=== PATIENT | male | born 1980 | race Caucasian/White ===

== ENCOUNTER → 2017-03-31 | Outpatient (CLI) | payer OTHER ==
--- NOTE | 2017-03-31 15:14 | CR ---
EXAMINATION: Left knee HISTORY: Arthropathy COMPARISON: None TECHNIQUE: 3 views FINDINGS/IMPRESSION: There is no acute osseous abnormality, dislocation, or fracture identified. Bon e mineralization and joint spaces appear normal. No soft tissue swelling or joint effusion.
== END ==
LOC: MW.CHFP 12:25
PROVIDERS: ATTEND Student in an Organized Health Care Education/Training Program
DX: M12.562 Traumatic arthropathy, left knee (principal)
CPT/HCPCS: 73562-26-LT; 73562-LT

== ENCOUNTER → 2017-04-04 | Outpatient (CLI) | payer OTHER ==
--- NOTE | 2017-04-05 13:41 | MR ---
EXAM DATE: 04/04/17 PATIENT'S AGE: 36 Patient: DAREK LOPEZ Facility: [place], [place] Site . Site : [id number] Study: MRI Knee Left [id number]/[id number]/2017 7:35:42 PM Ordering Physician: Luis Herzog Final Report: Indication: Pain after injury. Comparison: None provided. Technique: Axial PD fat-sat, sagittal T1, PD and PD fat sat and coronal PD and PD fat-sat sequences. Findings: Medial compartment: Meniscus: Irregular undersurface and free margin tearing through the posterior body into the outer posterior horn medial meniscus with slight extrusion of an irregular flap over the posteromedial margin of the tibial plateau. Moderate volume loss through the posterior horn with tearing through the undersurface, substance and free margin. Relatively well-defined superior and anterior displaced flap of the junction of posterior horn and root at the posterior medial margin of the intercondylar notch (image 25 series 8). Articular cartilage: Uniform thickness and signal. Medial collateral ligament: Intact. Cruciate ligaments: ACL: Somewhat wispy but intact diminutive ACL. PCL: Intact. Normal caliber and signal. Lateral compartment: Meniscus: Intact. Articular cartilage: Uniform. Lateral collateral complex: Intact. Patellofemoral compartment: Uniform thickness and signal of the articular cartilage. Extensor mechanism: Distal quadriceps tendon and patellar tendon are intact with anatomic patellar alignment and normal trochlear morphology. Capsule and retinacula appear unremarkable. Bones and soft tissues: Moderately large joint effusion. No bone lesion or fracture. Impression: 1. Extensive tearing medial meniscus with extrusion and displaced flap as discussed. 2. Congenital or remote posttraumatic diminutive ACL. 3. Large joint effusion. Dictated by Stiven Lyle MD @ Apr 05 2017 12:00PM (Electronic Signature) Report Signed by Proxy. AYANA
== END ==
LOC: MW.MRI 18:20
PROVIDERS: ATTEND Student in an Organized Health Care Education/Training Program
DX: M12.562 Traumatic arthropathy, left knee (principal); S83.242A Other tear of medial meniscus, current injury, left knee, initial encounter; M25.462 Effusion, left knee
CPT/HCPCS: 73721-26-LT; 73721-LT

== ENCOUNTER 2017-04-26 07:14 | Day surgery (SDC) | payer OTHER ==
[~2017-04-26 07:14] MED LIST: Lactated Ringers 1,000 ML IV SCH; Lidocaine 1% 20 ML MDV ONE
[2017-04-26] MEDS ORDERED: fentaNYL 250 MCG/5 ML SDV ONE (07:31)
[2017-04-26] MEDS ORDERED: Ondansetron 4 MG/2 ML SDV ONE (07:31)
[2017-04-26] MEDS ORDERED: Lidocaine 2% 5 ML SDV ONE (07:31)
[2017-04-26] MEDS ORDERED: Midazolam 1 MG/ML 2 ML SDV ONE (07:31)
[2017-04-26] MEDS ORDERED: Propofol 200 MG/20 ML SDV ONE ×2 (07:31→09:17)
[2017-04-26] MEDS ORDERED: ceFAZolin 1 GM Vial ONE (07:33)
[2017-04-26] MEDS ORDERED: Sodium Chloride 0.9% 20 ML ONE (07:33)
[2017-04-26] MEDS ORDERED: ceFAZolin 2 GM in Premix Bag 1 BAG IV SCH (08:00)
--- NOTE | 2017-04-26 08:22 | PCM.PREANE ---
Preanesthetic Assessment - Procedure Proposed Procedure: Left knee arthroscopy and care PRN - Anesthesia/Transfusion/Family Hx Anesthesia History: No Prior Anesthesia Family History of Anesthesia Reaction: No Transfusion History: No Prior Transfusion(s) Intubation History: Unknown - Review of Systems General: No Symptoms Pulmonary: No Symptoms Cardiovascular: No Symptoms Gastrointestinal: No symptoms Neurological: Other (left knee pain) Other: Reports: None - Physical Assessment NPO Status Date: 04/25/17 NPO Status Time: 00:00 O2 Sat by Pulse Oximetry: 95 Respiratory Rate: 16 Vital Signs: Last Vital Signs Temp 98.2 F 04/26/17 07:47 Pulse 74 04/26/17 07:47 Resp 16 04/26/17 07:47 BP 132/78 04/26/17 07:47 Pulse Ox 95 04/26/17 07:47 Height: 6 ft 2 in Weight: 255 lb ASA Class: 2 Mental Status: Alert & Oriented x3 Airway Class: Mallampati = 1 Dentition: Reports: Normal Dentition Thyro-Mental Finger Breadths: 3 Mouth Opening Finger Breadths: 3 ROM/Head Extension: Full (full neck) Lungs: Clear to auscultation, Normal respiratory effort Cardiovascular: Regular Rate, Regular Rhythm, No Murmurs - Allergies Allergies/Adverse Reactions: Allergies Allergy/AdvReac Type Severity Reaction Status Date / Time No Known Allergies Allergy Verified 04/24/17 11:18 - Blood Blood Available: No Product(s) Available: None - Anesthesia Plan Pre-Op Medication Ordered: None - Acknowledgements Anesthesia Type Planned: General Anesthesia (LMA) Pt an Appropriate Candidate for the Planned Anesthesia: Yes Alternatives and Risks of Anesthesia Discussed w Pt/Guardian: Yes Pt/Guardian Understands and Agrees with Anesthesia Plan: Yes PreAnesthesia Questionnaire HEENT History: Reports: None Cardiovascular History: Reports: None Respiratory History: Reports: None Gastrointestinal History: Reports: None Genitourinary History: Reports: None Musculoskeletal History: Reports: Back Pain, Chronic Other Musculoskeletal History: related to work Neurological History: Reports: None Psychiatric History: Reports: None Endocrine/Metabolic History: Reports: Obesity/BMI 30+ Hematologic History: Reports: None Immunologic History: Reports: None Oncologic (Cancer) History: Reports: None Dermatologic History: Reports: None - Past Surgical History Head Surgeries/Procedures: Reports: None Male Surgical History: Reports: None - SUBSTANCE USE Smoking Status *Q: Former Smoker Recreational Drug Use History: No - HOME MEDS Home Medications: Home Meds . [No Known Home Meds] 04/24/17 [History] - CURRENT (IN HOUSE) MEDS Current Meds: Current Medications Hydrocodone Bitart/Acetaminophen ([place] 325-5 Mg) 1 - 2 tab PO Q4H PRN PRN Reason: Pain Lactated Ringer's (Ringers, Lactated) 1,000 mls @ 100 mls/hr IV ASDIRECTED CLIFFORD Last Admin: 04/26/17 07:40 Dose: 100 mls/hr Cefazolin Sodium/Dextrose 2 gm (/ Premix) 50 mls @ 100 mls/hr IV ONCALL CLIFFORD Discontinued Medications Cefazolin Sodium (Ancef) Confirm Administered Dose 2 gm .ROUTE .STK-MED ONE Stop: 04/26/17 07:34 Fentanyl (Sublimaze) Confirm Administered Dose 250 mcg .ROUTE .STK-MED ONE Stop: 04/26/17 07:32 Sodium Chloride (Normal Saline) Confirm Administered Dose 20 mls @ as directed .ROUTE .STK-MED ONE Stop: 04/26/17 07:34 Lidocaine (Xylocaine-Mpf 2%) Confirm Administered Dose 5 ml .ROUTE .STK-MED ONE Stop: 04/26/17 07:32 Lidocaine HCl (Xylocaine 1%) Confirm Administered Dose 20 ml .ROUTE .STK-MED ONE Stop: 04/25/17 14:58 Midazolam HCl (Versed 1 Mg/Ml) Confirm Administered Dose 2 mg .ROUTE .STK-MED ONE Stop: 04/26/17 07:32 Ondansetron HCl (Zofran) Confirm Administered Dose 4 mg .ROUTE .STK-MED ONE Stop: 04/26/17 07:32 Propofol (Diprivan 20 Ml) Confirm Administered Dose 200 mg .ROUTE .STK-MED ONE Stop: 04/26/17 07:32
[2017-04-26] MEDS ORDERED: Acetaminophen/HYDROcodone 325-5 MG Tab PO PRN (09:00)
--- NOTE | 2017-04-26 09:04 | PCM.OPNOTE ---
- General Post-Op/Procedure Note Date of Surgery/Procedure: 04/26/17 Operative Procedure(s): L knee arthroscopy with PMM Post-Op Diagnosis: L knee medial meniscus tear Anesthesia Technique: General LMA Primary Surgeon: Zara Smith Felting Machine Operator: Kisha Aguayo in mLs: 5 Condition: Good Free Text/Narrative:: tt=20 min #[id number]
[2017-04-26] MEDS ORDERED: Succinylcholine/Normal Saline 200 MG/10 ML Syringe ONE (09:15)
[2017-04-26] MEDS: fentaNYL 100 MCG/2 ML SDV IVPUSH PRN ×2 (10:10→10:20)
--- NOTE | 2017-04-26 10:15 | PCM.POSTAN ---
POST ANESTHESIA ASSESSMENT - MENTAL STATUS Mental Status: alert, oriented - RESPIRATORY Respiratory Status: respiratory rate WNL, airway patent, O2 saturation stable - CARDIOVASCULAR CV Status: pulse rate WNL, blood pressure stable - GASTROINTESTINAL GI Status: no symptoms - PAIN Pain Score: 4 (will receive another dose of fentanyl prior to discharged) - POST OP HYDRATION Hydration Status: adequate & stable
--- NOTE | 2017-04-26 11:12 | PCM48HPAN ---
Post Anesthesia Note - EVALUATION WITHIN 48HRS OF ANESTHETIC Vital Signs in Normal Range: Yes Patient Participated in Evaluation: Yes Respiratory Function Stable: Yes Airway Patent: Yes Cardiovascular Function Stable: Yes Hydration Status Stable: Yes Pain Control Satisfactory: Yes (notes sensation in operated knee, but tolerable - worse now than preop) Nausea and Vomiting Control Satisfactory: Yes Mental Status Recovered: Yes - COMMENTS/OBSERVATIONS Free Text/Narrative:: Care deemed good with plan to go home soon.
[2017-04-26 12:08] VITALS: BP 134/80
--- NOTE | 2017-04-26 13:23 | OR ---
SURGEON: Zara Smith MD DATE OF PROCEDURE: 04/26/2017 PREOPERATIVE DIAGNOSIS: Left knee medial meniscus tear. POSTOPERATIVE DIAGNOSIS: Left knee medial meniscus tear. PROCEDURE PERFORMED: Left knee arthroscopy with partial medial meniscectomy. CANTEEN MANAGER: Kisha Aguayo PA-C. ANESTHESIA: General. ESTIMATED BLOOD LOSS: 5 mL. TOURNIQUET TIME: 20 minutes. COMPLICATIONS: None. DVT PROPHYLAXIS: Not indicated. IMPLANTS USED: None. BRIEF HISTORY: Mino is a 36-year-old male, who has had complaint of progressive left knee pain. An MRI did confirm a tear of the medial meniscus. Due to his lack of response to conservative treatment, I did recommend surgical intervention. The risks and goals of the procedure were discussed with the patient and were documented preoperatively. He agreed to proceed. DESCRIPTION OF PROCEDURE: The patient was properly identified and brought to the operating room. He was transferred from the OR cart and placed on the operating room table in supine position. General anesthesia was administered. After adequate anesthesia was obtained, a well-padded tourniquet was applied to the left lower extremity. The left lower extremity was then prepped in standard fashion using ChloraPrep solution. It was then sterilely draped. A time-out was performed to ensure correct site and procedure. Preoperative antibiotics were given. The surgical site had been marked preoperatively. An Esmarch was used to exsanguinate the left lower extremity and the tourniquet was inflated to 250 mmHg. A lateral portal arthrotomy was established. Blunt trocar and cannula were introduced into the suprapatellar pouch. Camera, inflow, and outflow were assembled. No significant synovitis was noted. The patellofemoral joint was visualized. The joint surfaces appeared pristine. The patella appeared to track centrally. I then extended down the lateral and medial gutter. No loose bodies were identified. I then entered the medial compartment. A medial portal arthrotomy was established. A blunt probe was inserted. He was found to have a large complex tear of the posterior horn of the medial meniscus. A portion of this had flipped into the intercondylar notch. Using a combination of biters and shaver, this was resected back to a stable remnant. The remainder of the meniscus was again probed. It was found to be stable. Joint surfaces were also inspected. There was some minor grade 2 chondromalacia along the posterior aspect of the lateral femoral condyle. The remainder showed grade 1 chondromalacia only. I then entered the notch. A portion of the fat pad was resected for visualization. The ACL was extensively probed. Its insertion on the lateral femoral condyle was intact. No tearing was noted. The PCL was also visualized and probed and found to be intact. I then entered the lateral compartment. The joint surfaces were pristine. The meniscus was probed and found to be stable. The instruments were then removed from the knee. The portal sites were closed with 3-0 nylon. Lidocaine 1% was injected along the portal tracts. Xeroform gauze was placed over the wound and a bulky dressing was applied. The tourniquet was then deflated. He was awakened from his anesthetic and transferred back to the operating room cart. He was brought to recovery room in stable condition. All needle and sponge counts were correct. YANI / CARLINE /[id number]
== END 2017-04-26 11:28 | disposition home or self-care (01) ==
LOC: MW.SDS 07:14
PROVIDERS: ATTEND Orthopaedic Surgery
PROC: 0SBD4ZZ Excision of Left Knee Joint, Percutaneous Endoscopic Approach (ICD-10-PCS; principal; 2017-04-26)
DX: S83.232A Complex tear of medial meniscus, current injury, left knee, initial encounter (principal); M94.262 Chondromalacia, left knee; E66.9 Obesity, unspecified; Z68.32 Body mass index [BMI] 32.0-32.9, adult; Z87.891 Personal history of nicotine dependence
CPT/HCPCS: 29881; A9270; J0690; J2250; J2405; J3010; J7120; 01400; 88304; J2704